=== PATIENT | male | born 1990 | race Caucasian/White ===

== ENCOUNTER 2017-07-21 08:22 | Emergency (ER) | payer MEDICAID ==
--- NOTE | 2017-07-21 08:34 | EDPHY ---
H & P Time Seen by Provider: 07/21/17 08:34 HPI/ROS: CHIEF COMPLAINT: Sore throat HISTORY OF PRESENT ILLNESS: Patient started with cough about a week ago. Intermittent and not associated with wheezing, occasional colored green sputum. Developed a sore throat 3 days ago which is mild and associated with some ear fullness but no difficulty with breathing or swallowing. Able to eat normally. No change in voice. He has been exposed to strep at his house. REVIEW OF SYSTEMS: Associated diffuse myalgias PAST MEDICAL HISTORY: Asthma Social history: Tobacco smoker General Appearance: Alert and conversant, cooperative. Normal voice, no stridor or drooling. No trismus with mild pharyngeal erythema but no exudate, uvula is midline, no tonsillar or peritonsillar swelling. Normal range of motion of the neck. No wheezing and no extra work of breathing, no retractions. Normal tympanic membranes. No facial swelling. Emergency Department course/MDM: Patient presents with likely URI with negative strep and influenza testing. Symptomatic treatment discussed, including Tylenol and ibuprofen, increasing oral fluids. Will refill his albuterol MDI as this may help with his cough, given history of asthma. However without wheezing would not give steroids right now. Primary care follow-up. Smoking Status: Current some day smoker Constitutional: Initial Vital Signs Temperature (C) 36.6 C 07/21/17 08:34 Heart Rate 78 07/21/17 08:34 Respiratory Rate 20 07/21/17 08:34 Blood Pressure 124/62 H 07/21/17 08:34 O2 Sat (%) 97 07/21/17 08:34 O2 Delivery Mode Room Air Allergies/Adverse Reactions: Sulfa (Sulfonamide Antibiotics) Allergy (Verified 07/21/17 08:34) Home Medications: Medication Instructions Recorded Albuterol Hfa Anes Only [Proair 2 puffs IH QID #1 mdi 07/21/17 Hfa Icu (*)] Clonidine 07/21/17 MDM/Departure - Depart Disposition: Home, Routine, Self-Care Clinical Impression: Pharyngitis Qualifiers: Pharyngitis/tonsillitis etiology: unspecified etiology Qualified Code(s): J02.9 - Acute pharyngitis, unspecified URI (upper respiratory infection) Qualifiers: URI type: unspecified URI Qualified Code(s): J06.9 - Acute upper respiratory infection, unspecified Condition: Good Instructions: Pharyngitis (ED), Upper Respiratory Infection (ED) Additional Instructions: Negative strep and flu testing. Ibuprofen 600 mg orally every 8 hr and/or Tylenol 650 mg orally every 6-8 hours as needed for discomfort over the next 3-5 days. Prescriptions: Albuterol Hfa Anes Only [Proair Hfa Icu (*)] 2 puffs IH QID #1 mdi Referrals: [facility],. [Clinic] - As per Instructions
[2017-07-21 08:37] VITALS: BP 124/62
== END 2017-07-21 08:56 | disposition home or self-care (01) ==
LOC: CED 08:22
DX: J02.9 Acute pharyngitis, unspecified (principal); J06.9 Acute upper respiratory infection, unspecified; J45.909 Unspecified asthma, uncomplicated; F17.200 Nicotine dependence, unspecified, uncomplicated
CPT/HCPCS: 87400-PO; 87880-PO